=== PATIENT | female | born 1950 | race African-American/Black ===

== ENCOUNTER 2019-10-01 11:57 | Emergency (ER) | payer MEDICARE, MEDICAID ==
[~2019-10-01] VITALS: Ht 172.7 cm; Wt 75.0 kg
[2019-10-01] MEDS ORDERED: HALOPERIDOL LACTATE 5MG/ML VIAL IM STA (12:20)
[2019-10-01] MEDS ORDERED: LORAZEPAM 2MG/ML CPJ IM STA (12:20)
[2019-10-01] MEDS ORDERED: DIPHENHYDRAMINE 50MG/ML VIAL IM STA (12:20)
[2019-10-01] MEDS ORDERED: SODIUM CHLORIDE 0.9% 1,000 ML IV ONE ×2 (12:30→15:00)
[2019-10-01 12:52] LABS: BASOPHILS % 0.8 % (0.0-2.0); EOSINOPHILS % 2.9 % (0.0-5.0); HEMATOCRIT. 35.4 % (36.0-48.0); HEMOGLOBIN. 11.9 g/dL (12.0-16.0); MEAN CORPUSCULAR HEMOGLOBIN 32.1 pg (28.0-32.0); MEAN CORPUSCULAR VOLUME 95.4 fL (81.0-99.0); MEAN PLATELET VOLUME 7.9 fl (7.4-10.4); MONOCYTES % 5.3 % (2.0-8.0); PLATELET 321 x1000/uL (130-400); RED BLOOD CELL COUNT 3.71 mill/uL (4.2-5.4); RED CELL DISTRIBUTION WIDTH 12.9 % (11.6-14.6)
[2019-10-01 12:53] LABS: CHLORIDE 105 mEq/L (98-107)
[2019-10-01 12:57] LABS: ETHANOL BLOOD 251 mg/dL
[2019-10-01 13:04] LABS: CREATINE KINASE 315 IU/L (26-192)
[2019-10-01 13:14] LABS: CLARITY URINE CLEAR (CLEAR); COLOR URINE YELLOW (YELLOW); KETONES URINE NEGATIVE (NEGATIVE); LEUKOCYTE ESTERASE URINE 1+ (NEGATIVE); NITRITE URINE NEGATIVE (NEGATIVE); OCCULT BLOOD URINE NEGATIVE (NEGATIVE); PROTEIN URINE NEGATIVE (NEGATIVE); SPECIFIC GRAVITY URINE 1.016 (1.005-1.030); UROBILINOGEN URINE 0.2 E.U./dL (0.2-1.0)
[2019-10-01 13:37] LABS: *BARBITURATES SCREEN URINE NEGATIVE (NEGATIVE)
[2019-10-01 13:39] LABS: *BENZODIAZEPINES SCREEN URINE NEGATIVE (NEGATIVE); *COCAINE SCREEN URINE PRESUMTIVE POSITIVE (NEGATIVE); CANNABINOID URINE SCREEN NEGATIVE (NEGATIVE); METHADONE URINE SCREEN NEGATIVE (NEGATIVE); OPIATES URINE SCREEN NEGATIVE (NEGATIVE); PHENCYCLIDINE URINE SCREEN NEGATIVE (NEGATIVE)
[2019-10-01 13:40] LABS: *AMPHETAMINES SCREEN URINE NEGATIVE (NEGATIVE)
[2019-10-01] MEDS ORDERED: CEFTRIAXONE 1 G PREMIX 50 ML IV ONE (17:30)
[2019-10-01] MEDS ORDERED: SODIUM CHLORIDE 0.9% 500 ML IV ONE (17:30)
[2019-10-02 06:46] VITALS: BP 127/84
== END 2019-10-02 06:51 | disposition home or self-care (01) ==
LOC: EDBD 11:57 → ER 11:57
DX: F10.129 Alcohol abuse with intoxication, unspecified (principal); Y90.8 Blood alcohol level of 240 mg/100 ml or more; R45.1 Restlessness and agitation
CPT/HCPCS: 36415; 70450; 71045; 80053; 80305; 80307; 80320; 80329; 81003; 82140; 82550; 83605; 83690; 84443; 84484; 85025; 96361; 96365; 96372; 99285; J0696; J1200; J1630; J2060; J7030; G0480

== ENCOUNTER 2022-01-31 12:10 | Emergency (ER) | payer MEDICARE, MEDICAID ==
[~2022-01-31] VITALS: Ht 160 cm; Wt 52.0 kg
[2022-01-31 12:50] VITALS: BP 131/86
== END 2022-01-31 16:14 | disposition left against medical advice (07) ==
LOC: ER 12:10
DX: Z53.21 Procedure and treatment not carried out due to patient leaving prior to being seen by health care provider (principal)

== ENCOUNTER 2022-04-21 09:58 | Emergency (ER) | payer MEDICARE, MEDICAID ==
[~2022-04-21] VITALS: Ht 167.6 cm; Wt 75.0 kg
[2022-04-21 10:01] VITALS: BP 134/71
[2022-04-21] MEDS ORDERED: HYDR453.3 TP (10:46)
== END 2022-04-21 11:02 | disposition home or self-care (01) ==
LOC: ER 10:03
DX: L85.8 Other specified epidermal thickening (principal); F10.21 Alcohol dependence, in remission
CPT/HCPCS: 99282